=== PATIENT | male | born 1960 ===

== ENCOUNTER 2017-12-11 10:45 | Inpatient (IN) | payer OTHER ==
[~2017-12-11] VITALS: Ht 182.9 cm; Wt 72.6 kg
[2017-12-11] MEDS ORDERED: XANAX XR0.5 MG PO (13:49)
[2017-12-11] MEDS ORDERED: ALTACE5 MG PO (13:50)
[2017-12-11] MEDS ORDERED: COREG PO (13:50)
[2017-12-11] MEDS ORDERED: PROTONIX20 MG PO (13:51)
[2017-12-11] MEDS ORDERED: ZANTAC300 MG PO (13:51)
== END 2017-12-18 16:13 | disposition home or self-care (01) | DRG 330 ==
LOC: SURH 12-15 07:00 → O/R 12-15 07:52 → SURH 12-15 07:52
PROVIDERS: Colon & Rectal Surgery
PROC: 0DJD8ZZ Inspection of Lower Intestinal Tract, Via Natural or Artificial Opening Endoscopic (ICD-10-PCS; 2017-12-15)
PROC: 0DTN4ZZ Resection of Sigmoid Colon, Percutaneous Endoscopic Approach (ICD-10-PCS; principal; 2017-12-15 07:00)
DX: K57.20 Diverticulitis of large intestine with perforation and abscess without bleeding (principal); I11.9 Hypertensive heart disease without heart failure; I45.19 Other right bundle-branch block; K58.8 Other irritable bowel syndrome; R73.01 Impaired fasting glucose; R00.1 Bradycardia, unspecified; I44.0 Atrioventricular block, first degree; F41.8 Other specified anxiety disorders

== ENCOUNTER 2017-12-19 15:09 | Inpatient (IN) | payer OTHER ==
[~2017-12-19] VITALS: Ht 182.9 cm; Wt 72.6 kg
[~2017-12-19 15:09] MED LIST: ALTACE5 MG PO; COREG PO; PROTONIX20 MG PO; XANAX XR0.5 MG PO; ZANTAC300 MG PO
== END 2017-12-24 10:37 | disposition home or self-care (01) | DRG 389 ==
LOC: ER 15:09 → SEC-K 12-20 08:41 → SURG 12-20 11:48
PROC: BW21Y0Z Computerized Tomography (CT Scan) of Abdomen and Pelvis using Other Contrast, Unenhanced and Enhanced (ICD-10-PCS; 2017-12-19)
PROC: 3E0336Z Introduction of Nutritional Substance into Peripheral Vein, Percutaneous Approach (ICD-10-PCS; principal; 2017-12-22)
DX: K91.31 Postprocedural partial intestinal obstruction (principal); K57.32 Diverticulitis of large intestine without perforation or abscess without bleeding; B37.82 Candidal enteritis; K29.00 Acute gastritis without bleeding; I11.9 Hypertensive heart disease without heart failure; I45.19 Other right bundle-branch block; I44.0 Atrioventricular block, first degree; F41.8 Other specified anxiety disorders; R73.01 Impaired fasting glucose; Y83.2 Surgical operation with anastomosis, bypass or graft as the cause of abnormal reaction of the patient, or of later complication, without mention of misadventure at the time of the procedure; Y92.098 Other place in other non-institutional residence as the place of occurrence of the external cause; K58.8 Other irritable bowel syndrome

== ENCOUNTER 2019-02-25 05:54 | Day surgery (SDC) | payer OTHER | END 2019-02-25 09:25 | disposition home or self-care (01) | LOC: AMB-ENDOS 05:54 | DX: K57.32 Diverticulitis of large intestine without perforation or abscess without bleeding (principal); K64.1 Second degree hemorrhoids ==